=== PATIENT | male | born 1990 | race Caucasian/White ===

== ENCOUNTER 2020-03-26 09:04 | Emergency (ER) | payer MEDICAID ==
[~2020-03-26] VITALS: Ht 188 cm; Wt 109.1 kg
[2020-03-26 09:05] VITALS: BP 122/67
== END 2020-03-26 11:09 | disposition home or self-care (01) ==
LOC: EMS 09:04
DX: H61.22 Impacted cerumen, left ear (principal); F20.9 Schizophrenia, unspecified
CPT/HCPCS: 99283; Z7502

== ENCOUNTER 2020-04-01 13:13 | Emergency (ER) | payer MEDICAID ==
[~2020-04-01] VITALS: Ht 188 cm; Wt 109.1 kg
[2020-04-01] MEDS ORDERED: CARBAMIDE PEROXIDE 6.5% 15 ML OTIC SOLUTION AS ONE (15:15)
[2020-04-01] MEDS ORDERED: KETOROLAC TROMETHAMINE 10 MG TABLET PO ONE (15:15)
[2020-04-01 16:03] VITALS: BP 127/71
== END 2020-04-01 16:11 | disposition home or self-care (01) ==
LOC: EMS 13:16
DX: H61.22 Impacted cerumen, left ear (principal); H60.92 Unspecified otitis externa, left ear
CPT/HCPCS: 69209

== ENCOUNTER 2020-11-13 06:36 | Emergency (ER) | payer MEDICAID ==
[~2020-11-13] VITALS: Ht 180.3 cm; Wt 81.0 kg
[2020-11-13 06:46] VITALS: BP 116/69
[2020-11-13] MEDS ORDERED: DOXYCYCLINE HYCLATE 100 MG TABLET PO ONE (07:15)
[2020-11-13] MEDS ORDERED: ACETAMINOPHEN 500 MG TABLET PO ONE (07:15)
[2020-11-13 07:24] LABS: BASOPHILS % (AUTO) 0.3 % (0.0-2.0); EOSINOPHILS % (AUTO) 0.4 % (1.0-6.0); HEMATOCRIT 45.1 % (41-53); HEMOGLOBIN 15.7 g/dL (13.5-17.5); LYMPHOCYTES # (AUTO) 0.9 K/uL (1.0-4.8); LYMPHOCYTES % (AUTO) 9.2 % (22.0-44.0); MEAN CORPUSCULAR HEMOGLOBIN 30.4 pg (26.0-34.0); MEAN CORPUSCULAR HGB CONC 34.7 G/dL (31.0-37.0); MEAN CORPUSCULAR VOLUME 88 fL (80-100); MONOCYTES % (AUTO) 9.9 % (2.0-9.0); NEUTROPHILS # (AUTO) 7.8 K/uL (1.8-7.7); NEUTROPHILS % (AUTO) 80.2 % (40.0-70.0); PLATELET COUNT (AUTO) 237 K/uL (150-450); RED BLOOD CELL COUNT(AUTO) 5.15 MIL/uL (4.50-5.90); RED CELL DISTRIBUTION WIDTH 13.5 % (11.5-14.5)
[2020-11-13 07:33] LABS: CALCIUM, TOTAL 9.9 mg/dL (8.8-10.5); CREATININE 1.55 mg/dL (0.60-1.30); POTASSIUM 4.2 mmol/L (3.5-5.1)
[2020-11-13 07:39] LABS: ALBUMIN 4.6 g/dL (3.4-5.0); BILIRUBIN,TOTAL 0.8 mg/dL (0.1-1.0); TOTAL PROTEIN, SERUM 7.9 g/dL (6.4-8.2)
== END 2020-11-13 08:25 | disposition home or self-care (01) ==
LOC: EMS 06:45
DX: L05.01 Pilonidal cyst with abscess (principal); F32.9 Major depressive disorder, single episode, unspecified
CPT/HCPCS: 80053; 84484; 85025; 99283